=== PATIENT | female | born 1990 | race African-American/Black ===

== ENCOUNTER 2024-10-22 11:48 | Emergency (ER) | payer SELFPAY ==
[~2024-10-22] VITALS: Ht 160 cm; Wt 70.0 kg
[2024-10-22 12:05] VITALS: BP 136/78; PULSE 68; RESP 16; TEMP 98.5; O2SAT 100
[2024-10-22 15:01] LABS: CHLORIDE 105 mEq/L (98-107); SODIUM 137 mEq/L (136-145)
[2024-10-22 15:02] LABS: CALCIUM 9.7 mg/dL (8.7-10.4); CARBON DIOXIDE 26 mEq/L (21-32)
[2024-10-22 15:07] LABS: CREATININE 1.1 mg/dL (0.6-1.0); GLUCOSE 83 mg/dL (70-105); UREA NITROGEN BLOOD 13 mg/dL (9-23)
[2024-10-22 15:09] LABS: HCG SCREEN NEGATIVE
[2024-10-22 15:10] LABS: TROPONIN I HIGH SENSITIVITY < 4 ng/L (3.0-34)
[2024-10-22 15:14] LABS: BASOPHILS % 0.3 % (0.0-2.0); EOSINOPHILS % 0.4 % (0.0-5.0); HEMATOCRIT. 40.8 % (36.0-48.0); HEMOGLOBIN. 13.9 g/dL (12.0-16.0); LYMPHOCYTES % 32.2 % (20.0-50.0); MEAN CORPUSCULAR HGB CONC 34.1 g/dL (31.0-37.0); MONOCYTES % 7.3 % (2.0-8.0); NEUTROPHILS % 59.8 % (40.0-76.0); PLATELET 341 x1000/uL (130-400); WHITE BLOOD COUNT 7.2 x1000/uL (4.5-11.0)
== END 2024-10-22 16:40 | disposition home or self-care (01) ==
LOC: ER 11:48
DX: R06.02 Shortness of breath (principal); R42 Dizziness and giddiness
CPT/HCPCS: 36415; 71045; 80048; 81025; 84484; 84703; 85025; 85379; 93005; 99285

== ENCOUNTER 2025-02-25 08:50 | Emergency (ER) | payer BC, MEDICAID ==
[~2025-02-25] VITALS: Ht 162.6 cm; Wt 100.0 kg
[2025-02-25 09:07] VITALS: BP 133/80; TEMP 36.8; O2SAT 98
[2025-02-25 09:19] VITALS: PULSE 85; RESP 18; O2SAT 100
== END 2025-02-25 10:26 | disposition home or self-care (01) ==
LOC: ER 08:50
DX: R06.02 Shortness of breath (principal)
CPT/HCPCS: 71045; 93005; 99283